=== PATIENT | female | born 1990 | race Caucasian/White ===

== ENCOUNTER → 2018-02-22 | Outpatient (CLI) | payer OTHER ==
[~2018-02-22] MED LIST: AMOCLA500 PO; AMOX250 PO; AMOX500 PO; ANTOXYBENA LEFTEAR; Amlodipine Bes2.5 MG PO; Amoxicillin500 MG PO; BUPR150T2 PO; Benadryl 50 mg50 MG PO; CEPH500 PO; CHOL10002 PO; CIPR500 PO; CITA20 PO; CYAN1000 PO; FISH1000 PO; FLUC150A PO; FOLI1 PO; HYDACE10B PO; HYDACE5 PO; HYOS.125 SL; IBUP800 PO; KETO10 PO; LORA10ER PO; MEDR10 PO; MEDR150I IM; NEBI5 PO; NEOPOLHYDS LEFTEAR; NITR100CA PO; OXYACE5T PO; PHENA200 PO; POTCIT10 PO; POTCIT5 PO; PREN-16 PO; PRODEXEL PO; Percocet 5-3251 EACH PO; RXHYDMOR2 PO; RXOXYACE PO; SULTRIDS PO; TAMS.4ER PO; UROCIT-K5 MEQ PO; VENL75ER PO; VITAMIN B12-FO1 EACH PO; Verotin-Gr Cap1 EACH PO
[2018-02-24 22:08] LABS: CHLAMYDIA TRACHOMATIS, NAA Negative (Negative); NEISSERIA GONORRHOEAE, NAA Negative (Negative)
== END | disposition home or self-care (01) ==
LOC: LAB SHORT 10:29 → LAB 10:29
PROVIDERS: Obstetrics & Gynecology
DX: Z36.89 Encounter for other specified antenatal screening (principal)
CPT/HCPCS: 87491; 87591; G0123

== ENCOUNTER → 2018-03-08 | Outpatient (CLI) | payer OTHER ==
[2018-03-09 12:36] LABS: Creatinine Urine 60.5 mg/dL (27.00-270.00); Protein, Urine Quantitative 14.9 mg/dL (0.0-11.9)
== END ==
LOC: LAB 07:30 → LAB SHORT 07:30
PROVIDERS: Obstetrics & Gynecology
DX: O13.9 Gestational [pregnancy-induced] hypertension without significant proteinuria, unspecified trimester (principal)
CPT/HCPCS: 81050; 82570; 84156

== ENCOUNTER → 2018-06-30 | Outpatient (CLI) | payer OTHER ==
[~2018-06-30] MED LIST changes: +DOCU100 PO; +Glyburide5 MG PO; +HUMULIN 70100 UNIT/1 SC; +IBUP800; +LABE100 PO; +LANTISEPTIC400 GM; +Percocet 5-3251 EACH
[2018-06-30 12:13] LABS: Source, Urine Clean Catch
[2018-06-30 13:07] LABS: Appearance, Urine Cloudy (Clear); Bilirubin, Urine Neg (Neg); Blood, Urine 5+ (Neg); Color, Urine Yellow (P-Yellow); Glucose Qualitative, Urine Neg (Neg); Ketones, Urine Neg (Neg); Leukocyte Esterase, Urine 1+ (Neg); Nitrite, Urine Neg (Neg); Protein, Urine 2+ (Neg); Specific Gravity, Urine 1.015 (1.003-1.022); Urobilinogen, Urine NORM (Normal); pH, Urine 6.5 (5.0-8.0)
[2018-06-30 13:34] LABS: Squamous Epithelial Cells Many /hpf (Few); White Blood Cells, Urine 25-50 /hpf (0-5)
[2018-06-30 13:35] LABS: Bacteria Mod /hpf; Red Blood Cells, Urine 50-100 /hpf (0-2)
== END | disposition home or self-care (01) ==
LOC: LAB 12:10 → LAB SHORT 12:10
PROVIDERS: Obstetrics & Gynecology
DX: O24.419 Gestational diabetes mellitus in pregnancy, unspecified control (principal); O13.9 Gestational [pregnancy-induced] hypertension without significant proteinuria, unspecified trimester; O99.89 Other specified diseases and conditions complicating pregnancy, childbirth and the puerperium; R82.998 Other abnormal findings in urine
CPT/HCPCS: 81001; 87086

== ENCOUNTER → 2018-07-11 | Outpatient (CLI) | payer OTHER | END | disposition home or self-care (01) | LOC: LAB SHORT 14:56 → LAB 14:56 | DX: O24.419 Gestational diabetes mellitus in pregnancy, unspecified control (principal) | CPT/HCPCS: 36415; 83036 ==

== ENCOUNTER 2018-07-21 11:45 | Inpatient (IN) | payer OTHER ==
[~2018-07-21] VITALS: Ht 147.3 cm
[~2018-07-21 11:45] MED LIST changes: -DOCU100 PO; -Glyburide5 MG PO; -HUMULIN 70100 UNIT/1 SC; -IBUP800; -LABE100 PO; -LANTISEPTIC400 GM; -Percocet 5-3251 EACH
[2018-07-21 12:22] LABS: Source, Urine Clean Catch
[2018-07-21 12:29] LABS: Appearance, Urine Cloudy (Clear); Bilirubin, Urine Neg (Neg); Blood, Urine 5+ (Neg); Color, Urine Yellow (P-Yellow); Glucose Qualitative, Urine Neg (Neg); Ketones, Urine Neg (Neg); Leukocyte Esterase, Urine 1+ (Neg); Nitrite, Urine Neg (Neg); Protein, Urine 2+ (Neg); Urobilinogen, Urine NORM (Normal)
[2018-07-21 12:43] LABS: Bacteria Mod /hpf; Squamous Epithelial Cells Mod /hpf (Few)
[2018-07-21 15:56] LABS: BASOPHILS ABSOLUTE AUTO 0.01 K/mm3 (0.00-0.23); BASOPHILS PERCENT AUTO 0 % (0-2); EOSINOPHILS ABSOLUTE AUTO 0.04 K/mm3 (0.00-0.68); EOSINOPHILS PERCENT AUTO 1 % (0-6); Hematocrit 32.3 % (33.0-51.0); Hemoglobin 10.7 g/dL (11.5-16.0); IMMATURE GRAN ABSOLUTE AUTO 0.01 K/mm3 (0.00-0.10); IMMATURE GRAN PERCENT AUTO 0 % (0-1); LYMPHOCYTES ABSOLUTE AUTO 1.52 K/mm3 (0.84-5.20); LYMPHOCYTES PERCENT AUTO 20 % (21-46); MONOCYTES ABSOLUTE AUTO 0.62 K/mm3 (0.16-1.47); MONOCYTES PERCENT AUTO 8 % (4-13); Mean Corpuscular HGB 28.8 pg (26.0-34.0); Mean Corpuscular HGB Conc 33.1 g/dL (31.5-36.5); Mean Corpuscular Volume 87 fL (80-100); NEUTROPHILS ABSOLUTE AUTO 5.56 K/mm3 (1.96-9.15); NEUTROPHILS PERCENT AUTO 72 % (41-73); Platelet Count 243 K/mm3 (150-400); RDW Coefficient Variation 14.7 % (11.7-14.2); RDW Standard Deviation 46.5 fL (35.1-46.3); Red Blood Cell Count 3.72 M/mm3 (3.80-5.20); White Blood Cell Count 7.76 K/mm3 (4.00-11.30)
[2018-07-21 16:00] LABS: Uric Acid, Blood 5.5 mg/dL (2.6-6.0)
[2018-07-21 16:01] LABS: Alanine Aminotransfer (ALT/SGP 16 U/L (12-78); Albumin, Blood 2.3 g/dL (3.4-5.0); Albumin/Globulin Ratio 0.6 (0.8-1.8); Alk Phos 87 U/L (50-136); Anion Gap 11 mmol/L (6-16); Aspartate Aminotrans (AST/SGOT 16 U/L (12-37); Bilirubin, Total 0.2 mg/dL (0.1-1.0); Blood Urea Nitrogen 11 mg/dL (8-24); CO2, Blood 20 mmol/L (21-32); Calcium, Blood 8.8 mg/dL (8.5-10.1); Chloride, Blood 111 mmol/L (98-108); Creatinine, Blood 0.52 mg/dL (0.40-1.00); Globulin, Blood 3.7 g/dL (2.2-4.0); Glomerular Filtration Rate >60 (60-); Glucose, Blood 62 mg/dL (70-99); Potassium, Blood 3.5 mmol/L (3.5-5.5); Sodium, Blood 142 mmol/L (136-145)
--- NOTE | 2018-07-21 16:11 | NUR ---
HERE FROM OFFICE AFTER NON REASSURING TRACING. REACTIVE NST AFTER EATING. CBG ORRIGINALLY 45 UP TO 74 WITH 1/2 SANDWICH. WILL OBSERVE OVERNIGHT
[2018-07-21] MEDS ORDERED: Glyburide5 MG PO (16:30)
[2018-07-21] MEDS ORDERED: HUMULIN 70100 UNIT/1 SC ×2 (16:32→16:33)
[2018-07-21] MEDS ORDERED: LABE100 PO (16:33)
--- NOTE | 2018-07-21 20:54 | NUR ---
HS SNACK OF CHEESE AND HALF TURKEY SANDWHICH WITH MAYONAISE GIVEN
--- NOTE | 2018-07-21 22:18 | NUR ---
RESTING COMFORTABLY. NO COMPLAINTS. DENIES H/A. NO C/O S/S OF LOW BS. VISITING WITH .
--- NOTE | 2018-07-22 00:09 | NUR ---
PT SOUND ASLEEP.
--- NOTE | 2018-07-22 07:37 | NUR ---
Pt and SO sleeping soundly. Did not wake when RN entered room w/breakfast tray.
[2018-07-22 17:01] LABS: BASOPHILS ABSOLUTE AUTO 0.01 K/mm3 (0.00-0.23); BASOPHILS PERCENT AUTO 0 % (0-2); EOSINOPHILS ABSOLUTE AUTO 0.05 K/mm3 (0.00-0.68); EOSINOPHILS PERCENT AUTO 1 % (0-6); Hemoglobin 11.4 g/dL (11.5-16.0); IMMATURE GRAN ABSOLUTE AUTO 0.03 K/mm3 (0.00-0.10); IMMATURE GRAN PERCENT AUTO 0 % (0-1); LYMPHOCYTES ABSOLUTE AUTO 1.67 K/mm3 (0.84-5.20); LYMPHOCYTES PERCENT AUTO 24 % (21-46); MONOCYTES ABSOLUTE AUTO 0.45 K/mm3 (0.16-1.47); MONOCYTES PERCENT AUTO 7 % (4-13); Mean Corpuscular HGB 29.3 pg (26.0-34.0); Mean Corpuscular HGB Conc 33.5 g/dL (31.5-36.5); Mean Corpuscular Volume 87 fL (80-100); Mean Platelet Volume 9.5 fL (9.1-12.4); NEUTROPHILS ABSOLUTE AUTO 4.65 K/mm3 (1.96-9.15); NEUTROPHILS PERCENT AUTO 68 % (41-73); Platelet Count 252 K/mm3 (150-400); RDW Coefficient Variation 14.7 % (11.7-14.2); RDW Standard Deviation 46.8 fL (35.1-46.3); Red Blood Cell Count 3.89 M/mm3 (3.80-5.20); White Blood Cell Count 6.86 K/mm3 (4.00-11.30)
[2018-07-22 19:15] LABS: PCO2 Cord - Arterial 77.9 mmHg (40-50); PO2 Cord - Arterial < 12 mmHg (16-20); pH Cord - Arterial 7.22 (7.28-7.35)
[2018-07-22 19:16] LABS: PCO2 Cord - Venous 51.9 mmHg (40-50); PO2 Cord - Venous 23.8 mmHg (28-32); pH Umbilical Cord - Venous 7.32 (7.26-7.35)
--- NOTE | 2018-07-23 03:16 | NUR ---
ASSUMED CARE AT 0310.
[2018-07-23 05:23] LABS: Hemoglobin 9.7 g/dL (11.5-16.0); Mean Corpuscular HGB Conc 33.4 g/dL (31.5-36.5); Mean Corpuscular Volume 87 fL (80-100); Mean Platelet Volume 9.6 fL (9.1-12.4); Platelet Count 209 K/mm3 (150-400); RDW Coefficient Variation 14.6 % (11.7-14.2); RDW Standard Deviation 45.7 fL (35.1-46.3); Red Blood Cell Count 3.34 M/mm3 (3.80-5.20); White Blood Cell Count 9.64 K/mm3 (4.00-11.30)
--- NOTE | 2018-07-23 06:50 | NUR ---
PT REQUESTING TO GET UP AT 0530 AND SHOWER SO SHE COULD VISIT HER BABY IN NURSERY. RN EXPLAINED SHE COULD GET UP TO THE WHEELCHAIR AND VISIT BABY IN NURSERY FIRST AND PT STATED SHE PREFERRED TO DO THAT FIRST INSTEAD OF SHOWERING. PT IN NURSERY FOR 1HR, BREASTFED NB WHILE IN NURSERY AND CAME BACK TO ROOM TO PUMP. PT REQUESTED STAYING IN THE WHEELCHAIR FOR A LITTLE LONGER SO SHE COULD SIT UP INSTEAD OF LIE BACK IN THE BED.
--- NOTE | 2018-07-23 07:14 | NUR ---
ASSUMED CARE. PT UP TO W/C AND TO NURSERY, BRINGING PUMPED COLOSTRUM
--- NOTE | 2018-07-23 10:15 | NUR ---
UP TO W/C TO NURSERY TO BREASTFEED
--- NOTE | 2018-07-23 11:50 | NUR ---
BACK TO ROOM FROM NURSERY. NO COMPLAINTS. EATING LUNCH.
--- NOTE | 2018-07-23 11:50 | NUR ---
FIRST POST VOID
--- NOTE | 2018-07-24 07:53 | NUR ---
PT SITTING IN WHEELCHAIR, GOING TO GET UP TO SHOWER. DECLINES ASSISTANCE. REPORTS GAS PAIN, DISCUSSED AMBULATING, DOING WC EVERY OTHER AMBULATION TO NSY. AC INSULIN ORDERED ON SS, IF CBG GREATER THAN 201 AC. UP TO NSY OFTEN.
--- NOTE | 2018-07-24 08:30 | NUR ---
PT UP TO SHOWER, SCRUBBED THE STERISTRIPS, STATING IT WAS BURNING FROM THE SOAP. DID SOME TEACHING RELATED TO STERI STRIP CARE. HAD SOME BLOODY DISCHARGE IN CENTER OF INCISION. STERI STRIPS MIGHT NEED REPLACED. PERIPAD PUT IN FOLD, AND INSTRUCTED PT WE WILL CHECK LATER WHEN DRY & SEE HOW STERI STRIPS LOOK. WILL REPLACE IF NEEDED.
--- NOTE | 2018-07-24 09:14 | NUR ---
07/24/18 0914 Lizbet Tian VERIFICATION: EDIT CHART.
--- NOTE | 2018-07-24 11:10 | NUR ---
pt in y holding nb.
--- NOTE | 2018-07-24 11:53 | NUR ---
PT CONT IN NSY, APPLE JUICE GIVEN FOR CBG 71. TRAY TAKEN TO ROOM, ENCOURED PT TO EAT AFTER FEEDING NB.
--- NOTE | 2018-07-24 12:33 | NUR ---
PT SITTING UP IN ROOM EATING LUNCH, HAS BEEN IN NSY FOR LONG TIME THIS AM. MEDICATED WITH 2 PERCOCETS.
--- NOTE | 2018-07-24 13:10 | NUR ---
IN TO CHECK ON STERI STRIPS, REMOVED 5-6 ON LEFT SIDE, NOT ON INCISION AT ALL, JUST HOLDING MOISTURE. REPLACED ON LEFT, STERI STRIPS OVERLAPPING, REPLACED WITH SPACING IN BETWEEN, NOTED TO HAVE FLAP OF SKIN (LOOKED LIKE OLD INCISION SCAR). LEFT SIDE HAS A BIT OF A GAP, WILL NOTIFY MD WHEN SHE COMES BACK.
--- NOTE | 2018-07-25 05:15 | NUR ---
PATIENT ASKED TO LAY DOWN AND RELAX ON HER SIDE. PATIED LAID DOWN AT 0505. WILL RECHECK HER BP AT ~0535
--- NOTE | 2018-07-25 05:45 | NUR ---
BP RECHECKED AND IS MUCH IMPROVED. 139/83.
--- NOTE | 2018-07-25 10:20 | NUR ---
B/P ELEVATED, WAS UP IN SHOWER IN PAIN
[2018-07-25] MEDS ORDERED: Percocet 5-3251 EACH (11:17)
[2018-07-25] MEDS ORDERED: IBUP800 (11:17)
--- NOTE | 2018-07-25 12:00 | NUR ---
PATIENT INSTRUCTED TO CALL BEFORE MEALS FOR CBG WHEN WENT BACK INTO ROOM PATIENT FINSHED TRAY OF FOOD SAID SHE FORGOT TO CALL FOR AC CBG
--- NOTE | 2018-07-25 13:45 | NUR ---
CONSULT. MOM IS 3 DAYS POST OP, DELIVERY OF 35 WEEK SON BY C/S. HAS BEEN PUMPING 1 BREAST AT A TIME FOR 15 MINUTES, STATES Q2-3 HOURS AND IS ONLY GETTING ABOUT 3CC TOTAL/SESSION NOW. INSTRUCT IN PUMPING BOTH SIDES AT THE SAME TIME, FOR 20 MINUTES, Q2 HOURS DAY, Q4 HOURS NIGHT, AT LEAST 8-10X/DAY. INSTRUCT IN CHANGES TO EXPECT DURING THE FIRST WEEK WITH BABY AND WITH FEEDINGS AND ENERGY CONSERVATION OF THE . INSTRUCT THAT TIME AT BREAST WILL INCREASE HIS ABILITY TO SUCK STRONGER INCREASES. FOR NOW, IF HE COLINDRES A LOT OF CALORIES TRYING TO EAT AND DOESN'T TAKE IN MANY CALORIES, HE WILL LOSE WEIGHT. HE IS CURRENTLY BOTTLE FEEDING WITH PREEMIE NIPPLE AND TAKING ABOUT 30CC/FEEDING. PARENTS ARE USING PACED FEEDING TECHNIQUE, EXPERIENCED PARENTS AND HANDLE HIM WELL. QUESTIONS ANSWERED.
--- NOTE | 2018-07-25 13:52 | NUR ---
acura sales consultant done, pumping
--- NOTE | 2018-07-25 16:09 | NUR ---
PATIENT DENIES HEADACHE, VISUAL DISTURBANCES, VOIDING WITHOUT DIFFICULTY
--- NOTE | 2018-07-25 18:39 | NUR ---
STATES PAIN TO 8/10 MEDICATED, STATES HEADACHE STARTED, NO EPIGASTRIC PAIN NAUSEA OR VISUAL DISTURBANCE
[2018-07-26] MEDS ORDERED: DOCU100 PO (09:52)
[2018-07-26] MEDS ORDERED: LANTISEPTIC400 GM (09:57)
--- NOTE | 2018-07-26 10:45 | NUR ---
Printed d/c instructions updated with new medication doses and appointment times. Pt denies additional questions or concerns. ID bands matched w/nb. No acute changes this shift. Pt d/c'd home ambulatory to care of .
== END 2018-07-26 10:45 | disposition home or self-care (01) | DRG 786 ==
LOC: OBS 11:45 → BC 11:45 → OBS 15:41 → BC 15:42
PROVIDERS: ADMIT Obstetrics & Gynecology
PROC: 10D00Z1 Extraction of Products of Conception, Low, Open Approach (ICD-10-PCS; principal; 2018-07-22 18:15)
DX: O10.92 Unspecified pre-existing hypertension complicating childbirth (principal); O24.32 Unspecified pre-existing diabetes mellitus in childbirth; O60.14X0 Preterm labor third trimester with preterm delivery third trimester, not applicable or unspecified; Z68.43 Body mass index [BMI] 50.0-59.9, adult; E11.9 Type 2 diabetes mellitus without complications; O99.214 Obesity complicating childbirth; O76 Abnormality in fetal heart rate and rhythm complicating labor and delivery; Z3A.35 35 weeks gestation of pregnancy; Z37.0 Single live birth; O34.211 Maternal care for low transverse scar from previous cesarean delivery; E66.01 Morbid (severe) obesity due to excess calories; Z79.4 Long term (current) use of insulin; Z87.891 Personal history of nicotine dependence; Z79.84 Long term (current) use of oral hypoglycemic drugs; Z79.899 Other long term (current) drug therapy
CPT/HCPCS: 36415; 36416; 59025; 76819; 80053; 81001; 82803; 82947; 84550; 85025; 85027; 87086; 88302; 90686; 96360; 96361; G0378; J0690; J1815; J1885; J2405; J2590; J2765; J3010; J7120

== ENCOUNTER → 2018-08-06 | Outpatient (CLI) | payer OTHER ==
[~2018-08-06] MED LIST changes: +DOCU100 PO; +Glyburide5 MG PO; +HUMULIN 70100 UNIT/1 SC; +IBUP800; +LABE100 PO; +LANTISEPTIC400 GM; +Percocet 5-3251 EACH
== END | disposition home or self-care (01) ==
LOC: LAB 14:05 → LAB SHORT 14:05
DX: N39.0 Urinary tract infection, site not specified (principal)
CPT/HCPCS: 87086

== ENCOUNTER → 2019-07-11 | Outpatient (CLI) | payer OTHER | END | disposition home or self-care (01) | LOC: LAB SHORT 19:13 → LAB 19:13 | DX: N39.0 Urinary tract infection, site not specified (principal) | CPT/HCPCS: 87086 ==

== ENCOUNTER → 2022-08-03 | Outpatient (CLI) | payer OTHER ==
[2022-08-04 08:21] LABS: Candida species (DNA Probe) Negative (NEGATIVE); G. vaginalis (DNA Probe) Positive (NEGATIVE); T. vaginalis (DNA Probe) Negative (NEGATIVE)
== END | disposition home or self-care (01) ==
LOC: LAB SHORT 15:17 → LAB 15:17
PROVIDERS: Advanced Practice Midwife
DX: R30.0 Dysuria (principal); N76.0 Acute vaginitis
CPT/HCPCS: 87077; 87086; 87186; 87480; 87510; 87660

== ENCOUNTER → 2025-02-06 | Outpatient (CLI) | payer OTHER ==
[2025-02-06 10:29] LABS: Protein, Urine Quantitative 20.2 mg/dL (0.0-11.9)
[2025-02-06 10:30] LABS: Microalbumin, Urine Quant. 85.3 mg/L (0.000-20.000)
== END | disposition home or self-care (01) ==
LOC: LAB SHORT 06:30 → LAB 06:30
PROVIDERS: Internal Medicine Nephrology
DX: N18.2 Chronic kidney disease, stage 2 (mild) (principal); D63.1 Anemia in chronic kidney disease; N25.81 Secondary hyperparathyroidism of renal origin; E55.9 Vitamin D deficiency, unspecified; E78.00 Pure hypercholesterolemia, unspecified; D51.8 Other vitamin B12 deficiency anemias; D52.8 Other folate deficiency anemias; D50.9 Iron deficiency anemia, unspecified; R76.9 Abnormal immunological finding in serum, unspecified; R94.5 Abnormal results of liver function studies; R94.6 Abnormal results of thyroid function studies
CPT/HCPCS: 81050; 82043; 82570; 84156

== ENCOUNTER → 2025-03-25 | Outpatient (CLI) | payer OTHER | LOC: LAB SHORT 16:32 → LAB 16:32 | DX: N39.0 Urinary tract infection, site not specified (principal) | CPT/HCPCS: 87086 ==